=== PATIENT | male | born 1955 | race Caucasian/White ===

== ENCOUNTER 2022-08-08 08:00 | Outpatient (REF) | payer MEDICARE, MEDICAID, SELFPAY ==
--- NOTE | ~2022-08-08 | XR_ITS ---
EXAMINATION: KNEE X-RAY CLINICAL INFORMATION: Pain COMPARISON: Previous x-ray December 2017 TECHNIQUE: Standing AP view of both knees and lateral and sunrise view of the right knee FINDINGS: Right: Bone alignment is normal. No fracture or dislocation. Degenerative meniscal calcification. Small osteophytes at the femoral tibial and patellofemoral joints. Small joint effusion. Standing AP view of the left knee is unremarkable. XR/XR knee RT 2V IMPRESSION: Mild right knee arthritis.
--- NOTE | ~2022-08-08 | XR_ITS ---
EXAMINATION: KNEE X-RAY CLINICAL INFORMATION: Pain COMPARISON: Previous x-ray December 2017 TECHNIQUE: Standing AP view of both knees and lateral and sunrise view of the right knee FINDINGS: Right: Bone alignment is normal. No fracture or dislocation. Degenerative meniscal calcification. Small osteophytes at the femoral tibial and patellofemoral joints. Small joint effusion. Standing AP view of the left knee is unremarkable. XR/XR knee standing BI IMPRESSION: Mild right knee arthritis.
== END 2022-08-08 08:01 | disposition home or self-care (01) ==
LOC: HO.HOSX 08:00
PROVIDERS: Visit Provider Physician Assistant
DX: M23.91 Unspecified internal derangement of right knee (principal); M25.561 Pain in right knee
CPT/HCPCS: 20610; 73560; 73565; 99212; J1040

== ENCOUNTER → 2023-03-20 13:15 | Outpatient (BNVA) | payer MEDICARE, MEDICAID, SELFPAY | PROVIDERS: PCP Family Medicine Adult Medicine; Visit Provider Physician Assistant | DX: M23.91 Unspecified internal derangement of right knee (principal) | CPT/HCPCS: 20610; 99212; J1040 ==

== ENCOUNTER 2023-05-14 12:30 | Outpatient (AMB) | payer MEDICARE, MEDICAID, SELFPAY ==
--- NOTE | 2023-05-14 12:32 | A.OFFVIS_ITS ---
Intake Vital Signs 05/14/23 12:35 Height 5 ft 11 in Weight 202 lb BMI 28.2 Intake Visit Reasons: OV - Right knee pain, last inj 03/20/23 Intake Note: Marcel is a 67 year old female who presents today for a follow up for his right knee pain, last inj 03/20/23. Patient reports still having pain and not being able to bend his knee. Last injection gave him 2 weeks of relief but his pain came back after per patient. Hx of PT with no relief. Hx of knee brace with no relief. Hx of topical cream with no relief. Allergies morphine [MORPHINE] Allergy (Severe, Verified 05/14/23 12:35) PANIC ATTACKS, Insomnia Penicillins [PENICILLINS] Allergy (Intermediate, Verified 05/14/23 12:35) HIVES penicillin G Allergy (Unknown, Verified 05/14/23 12:35) hives penicillin V Allergy (Unknown, Verified 05/14/23 12:35) Hives HPI OV - Right knee pain, last inj 03/20/23 HPI Details 67-year-old male who presents in the office today for a follow up of right knee pain. The patient had a cortisone injection in the right knee on 03/20/2023, which gave him 2 weeks worth of relief. He claims to still have pain. He states he is unable to bend the knee. He states when he moves the knee he feels a snapping sensation. Patient has a history of physical therapy with no relief. He has also used a knee brace with no relief. Patient used compound cream (hot and cold; another one he does not recall the name, OTC) with no pain relief. 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 No ecchymosis or erythema. Mild to moderate joint effusion. No tenderness to palpation to the medial or lateral joint lines. Full knee extension and flexion. Crepitus felt with ROM. Negative Cortes's. NVI. Assessment & Plan Assessment & Plan (1) Internal derangement of right knee: Code(s): M23.91 - Unspecified internal derangement of right knee Plan Mr. Dwyer is a 67-year-old male who presents in the office today for a follow up of right knee pain. The patient had a cortisone injection in the right knee on 03/20/2023, which gave him 2 weeks worth of relief. He claims to still have pain. He states he is unable to bend the knee. He states when he moves the knee he feels a snapping sensation. Patient has a history of physical therapy with no relief. He has also used a knee brace with no relief. Patient used compound cream (hot and cold; another one he does not recall the name, OTC) with no pain relief. We discussed conseritive treatments verses surgical intervention. I discussed the role of Gel injections while in the office. I will send in a prescription for a compounding cream to the pharmacy. Follow up will be after the insurance has given approval for Gel injections, or sooner if needed. Of note: He would like for a letter to be sent to his house to notify him when he can come in for the Gel injections. He states he does not always notice his missing calls on the phone. Patient Instructions: Scribed for Yovana Milton PA-C by Danelle Mejia medical sales, on 05/14/2023 at 12:37 pm, EST. Coding Level of Care Code Est Pt Level 3 (73878) Diagnoses Internal derangement of right knee M23.91
[2023-05-14 12:35] VITALS: BMI 28.2
== END 2023-05-14 12:58 | disposition home or self-care (01) ==
PROVIDERS: PCP Family Medicine Adult Medicine; Visit Provider Physician Assistant
DX: M23.91 Unspecified internal derangement of right knee (principal)
CPT/HCPCS: 99213

== ENCOUNTER → 2023-05-14 12:30 | Outpatient (BNVA) | payer MEDICARE, MEDICAID, SELFPAY | PROVIDERS: PCP Family Medicine Adult Medicine; Visit Provider Physician Assistant | DX: M23.91 Unspecified internal derangement of right knee (principal) | CPT/HCPCS: 99212 ==